=== PATIENT | female | born 1975 | race Caucasian/White ===

== ENCOUNTER 2017-08-03 01:58 | Inpatient (IN) | payer OTHER ==
[2017-08-03] VITALS (12 sets, daily range): BP systolic 97–139; BP diastolic 61–94
[~2017-08-03] VITALS: Ht 172.7 cm; Wt 77.0 kg
[~2017-08-03 01:58] MED LIST: CIPRO500 MG PO; EYE DROP TEARS15 ML OP; LACTULOSE10 GM/153 PO; MEDROL4 MG PO; NEURONTIN 300300 M1 PO; NOHOMEMEDICATIONS; PEPCID20 MG PO; PERCOCET 5-3251 EACH PO; UNICOMPLEX M TA1 TA1 PO; VITAMIN B-1100 M1 PO; XIFAXAN550 MG PO
[2017-08-03 02:41] LABS: ABSOLUTE LYMPHOCYTES 0.5 thou/uL (0.8-5.3); ABSOLUTE MONOCYTES 0.4 thou/uL (0.0-1.2); ABSOLUTE NEUTROPHILS 2.2 thou/uL (1.6-8.1); BASOPHILS 0.7 %; EOSINOPHILS 1.2 %; HEMATOCRIT 33.7 % (37.0-47.0); HEMOGLOBIN 11.4 gm/dL (12.0-15.0); LYMPHOCYTES 15.3 %; MCH 35.2 pg (26.0-34.0); MCHC 33.9 g/dL (28.0-37.0); MCV 103.9 fL (80.0-100.0); MONOCYTES 12.8 %; MPV 8.7 fl. (7.2-11.1); NUCLEATED RBCS 0 /100WBC; RBC 3.25 mil/uL (4.20-5.00); RDW-CV 16.7 % (10.5-14.5); WBC 3.1 thou/uL (4.0-11.0)
[2017-08-03 02:49] LABS: URINE CLARITY CLEAR; URINE COLOR AMBER; URINE SPECIFIC GRAVITY 1.025 (1.005-1.030)
[2017-08-03 02:50] LABS: URINE BILIRUBIN 1+ (Negative); URINE BLOOD 2+ (Negative); URINE GLUCOSE-RANDOM NEGATIVE (Negative); URINE KETONES 1+ (Negative); URINE LEUKOCYTES-REFLEX NEGATIVE (Negative); URINE NITRITE-REFLEX NEGATIVE (Negative); URINE PROTEIN 2+ (Negative); URINE UROBILINOGEN 0.2 E.U./dl (0.2-1.0)
[2017-08-03 02:52] LABS: PLATELET COUNT* 38 thou/uL (150-400)
[2017-08-03 02:56] LABS: AMP/METHAMP Negative (Negative); BARBITURATES Negative (Negative); BENZODIAZEPINES Negative (Negative); COCAINE Negative (Negative); METHADONE Negative (Negative); OPIATES Negative (Negative); PCP Negative (Negative); THC Negative (Negative)
[2017-08-03 03:01] LABS: CASTS None Seen /LPF (None Seen); CRYSTALS None Seen /LPF (None Seen); ICTOTEST (BILI CONFIRMATORY) Positive (Negative); MUCUS 0-3 Light strn/LPF (None Seen); SQUAMOUS 4-10 Moderate /LPF (0-3); TRANSITIONAL EPITHEL CELL 0-3 Few /LPF (None Seen); URINE RBC 3-10 Few /HPF (0-2); URINE WBC-REFLEX None Seen /HPF (0-5)
[2017-08-03 03:22] LABS: ALBUMIN 4.2 g/dL (3.4-5.0); CALCIUM 9.6 mg/dL (8.5-10.1); CREATININE 0.8 mg/dL (0.6-1.3); MAGNESIUM 1.3 mg/dL (1.8-2.4); PHOSPHORUS* 2.6 mg/dL (2.5-4.9); POTASSIUM 3.2 mmol/L (3.5-5.1); TOTAL BILIRUBIN 5.5 mg/dL (<0.1-1.0); TOTAL PROTEIN 8.2 g/dL (6.4-8.2)
--- NOTE | 2017-08-03 04:05 | NUR ---
0315 PT HAVING ANOTHER SEIZURE AT THIS TIME.
--- NOTE | 2017-08-03 04:06 | NUR ---
0340 MEDS GIVEN AT THIS TIME, PT FIGHTING STAFF AND PULLED OUT HER IV.
[2017-08-03] MEDS ORDERED: NEURONTIN 300M300 M2 PO (05:49)
--- NOTE | 2017-08-03 06:28 | NUR ---
0542 PT ARRIVED TO UNIT VIA STRETCHER IN STABLE CONDITION. ORIENTED PT TO UNIT. SETTLED IN BED. PLACED ON TELE. ADMITTED TO UNIT.
--- NOTE | 2017-08-03 07:43 | NUR ---
PATIENT CURRENTLY SLEEPING. WAKEN FOR ASSESSMENT. NO PAIN, NAUSEA OR SHORTNESS OF AIR. DENIES HEADACHE OR HALLUCINATIONS. ASSESSMENT CHARTED. GOALS ARE SAFTEY, PAIN CONTROL, SEIZURE PRECAUTIONS AND CIWA Q1H. BED IN LOWEST POSITION, CALL LIGHT IN REACH, STAFF SONOGRAPHER IN PLACE, WILL CONTINUE TO MONITOR.
[2017-08-03 07:57] LABS: INR 1.3; PROTIME 12.9 Seconds (9.20-11.50)
--- NOTE | 2017-08-03 10:19 | EKG ---
[place] [address] ELECTROCARDIOGRAM REPORT Name: DAQUAN CLIFFORD Room: [address] IN [facility]#: [id number] Admission: 08/03/17 Attend Phys: Claudia Meng Discharge: Date of : 71 Report #: [id number] THIS REPORT FOR: //name// [facility] ED Test Date: 2017-08-03 Test Time: 02:29:30 Pat Name: DAQUAN CLIFFORD Department: Room: Gender: F Director Of Digital Technology: : 1975 Requested By: Page Gutierrez Order Number: [id number] MD: Cl Erickson Measurements Intervals Hugo Rate: 95 P: 60 WI: 160 QRS: 33 QRSD: 79 T: 28 QT: 368 QTc: 463 Interpretive Statements Sinus rhythm No previous ECG available for comparison Electronically Signed On 08-03-2017 10:19:34 CDT by Cl Eirckson [email or web address] <ELECTRONICALLY SIGNED> By: Cl Erickson MD, [facility] 08/03/17 1019 [id number] Cl Erickson MD, FACC /EPI
--- NOTE | 2017-08-03 12:33 | NUR ---
PATIENT IS OK TO GO TO MRI WITHOUT NURSE PER DR HELM.
--- NOTE | 2017-08-03 17:42 | NUR ---
PATIENT HAS PROGRESSED WELL TOWARDS GOALS. NO NAUSEA, SHORTNESS OF AIR. PAIN PRESENT IN THROAT, ONETIME DOSE OF IBUPROFEN ORDERED PER CONCERT MANAGER DR ABEBE. FAMILY HAS VISITED TODAY. CIWA HAS REMAINED 2 ALL DAY. NO SEIZURE ACTIVITY TODAY, PRECAUTIONS REMAIN IN PLACE, FALL PRECAUTIONS REMAIN IN PLACE. MRI AND EEG DONE TODAY. BED IN LOWEST POSITION, CALL LIGHT IN REACH, ASSET PROTECTION GREETER IN PLACE. WILL CONTINUE TO MONITOR.
[2017-08-03 17:50] LABS: MAGNESIUM 2.3 mg/dL (1.8-2.4); POTASSIUM 4.1 mmol/L (3.5-5.1)
[2017-08-04] VITALS (8 sets, daily range): BP systolic 87–126; BP diastolic 57–89
[2017-08-04 03:10] LABS: HEMATOCRIT 31.5 % (37.0-47.0); HEMOGLOBIN 10.7 gm/dL (12.0-15.0); MCH 36.1 pg (26.0-34.0); MCV 106.1 fL (80.0-100.0); MPV 9.2 fl. (7.2-11.1); RBC 2.97 mil/uL (4.20-5.00); RDW-CV 17.3 % (10.5-14.5); WBC 3.6 thou/uL (4.0-11.0)
[2017-08-04 03:33] LABS: ALBUMIN 3.4 g/dL (3.4-5.0); CALCIUM 8.6 mg/dL (8.5-10.1); CREATININE 0.6 mg/dL (0.6-1.3); PHOSPHORUS* 2.4 mg/dL (2.5-4.9); POTASSIUM 4.3 mmol/L (3.5-5.1); TOTAL BILIRUBIN 6.5 mg/dL (<0.1-1.0); TOTAL PROTEIN 7.1 g/dL (6.4-8.2)
--- NOTE | 2017-08-04 05:15 | NUR ---
PATIENT PROGRESSING TOWARDS DISCHARGE GOALS. NO ACUTE CHANGES OVER NIGHT. CIWA SCORES 2. D/T MILDLY ANXIOUS. SHE WANTS TO BE ABLE TO GO HOME SOON POSSIBLE. PLT COUNT CONTINUES TRENDING DOWN NOW AT 35 DR. MADE AWARE. PT EXPLAINED SHE HAS TROUBLE SLEEPING AT HOME AND WANTS TO KNOW IF THE DR CAN SEND HER HOME WITH SOME SORT OF SLEEP AID MEDICAITON. PT DENIES PAIN, N&V, NO SEIZURE ACTIVITY. WILL CONTINUE TO MONITOR SEIZURE PRECAUTONS IN PLACE. CALL LIGHT WITHIN REACH. BED TO LOWEST POSITION.
--- NOTE | 2017-08-04 08:15 | NUR ---
6768 ASSUMED CARE OF PATIENT. PLEASE SEE DOCUMENTED ASSESSMENT AND CIWA SCORING. DISCUSSED GOALS AND PLAN OF CARE WITH PATIENT. SHE IS AGREEABLE. SD'S REPLACED
[2017-08-04 09:09] LABS: HEPATITIS B SURFACE AG Negative (Negative)
--- NOTE | 2017-08-04 09:51 | NUR ---
PATIENT SPOKE AT LENGTH WITH DR HELM. PATIENT IS NOW TELEMETRY STATUS
--- NOTE | 2017-08-04 10:46 | NUR ---
1000 FOOT PUMPS PLACED PER ORDER DR HELM
--- NOTE | 2017-08-04 11:50 | NUR ---
SPOUSE TO VISIT PATIENT
--- NOTE | 2017-08-04 17:24 | NUR ---
PATIENT PROGRESSING TOWARDS GOALS. NOW TELE STATUS. CIWA 2-3. PLATELETS LOW AND BANANA BAG INFUSING. ON ROOM AIR. UP TO BSC. FOOR PUMPS WHEN UP. SPOUSE HAS VISITED. PATIENT DOES NOT WANT SPOUSE TO KNOW OF HER ETOH ABUSE. SHE SAYS SHE WILL TELL HIMN WHEN SHE IS READY
--- NOTE | 2017-08-04 17:59 | NUR ---
PATIENT TO MOVE TO ROOM 214. PATIENT AND FAMILY INFORMED OF NEW ROOM
--- NOTE | 2017-08-04 18:39 | NUR ---
TRANSFERRED PER WHEELCHAIR WITH ALL RECORDS AND BELONGINGS. REPORT TO LALO JAIMES
--- NOTE | 2017-08-04 18:40 | NUR ---
PT ORIENTED TO ROOM AND UNIT. BED LOW AND LOCKED, SIDE RAILS UPX 3, CALL LIGHT IN REACH. TELE REVEALS SR IN THE S.
[2017-08-05 00:31] VITALS: BP 118/86
[2017-08-05 03:49] VITALS: BP 133/85
[2017-08-05 04:57] LABS: HEMATOCRIT 31.3 % (37.0-47.0); HEMOGLOBIN 10.7 gm/dL (12.0-15.0); MCH 35.7 pg (26.0-34.0); MCV 104.9 fL (80.0-100.0); MPV 9.2 fl. (7.2-11.1); RBC 2.99 mil/uL (4.20-5.00); RDW-CV 17.8 % (10.5-14.5); WBC 3.8 thou/uL (4.0-11.0)
[2017-08-05 05:04] LABS: ALBUMIN 3.3 g/dL (3.4-5.0); CALCIUM 8.7 mg/dL (8.5-10.1); CREATININE 0.6 mg/dL (0.6-1.3); MAGNESIUM 1.5 mg/dL (1.8-2.4); PHOSPHORUS* 3.5 mg/dL (2.5-4.9); POTASSIUM 3.7 mmol/L (3.5-5.1); TOTAL BILIRUBIN 6.8 mg/dL (<0.1-1.0); TOTAL PROTEIN 6.9 g/dL (6.4-8.2)
--- NOTE | 2017-08-05 05:30 | NUR ---
PT CARE ASSUMED AFTER REPORT. ASSESSMENT COMPLETE. SR ON MONITOR. PT REMOVED HER IV. STATES THAT SHE DOES NOT NEED ONE THAT SHE IS GOING HOME TODAY. CIWA SCORE OF 2. UP AD ROSSANA WITH STEADY GAIT. CALL LIGHT IN REACH. BED IN LOWEST POSITION. PROGRESSING TOWARDS GOALS. DENIES PAIN.
[2017-08-05 08:18] VITALS: BP 128/84
[2017-08-05 11:40] VITALS: BP 128/84
[2017-08-05] MEDS ORDERED: BUSPIRONE HCL10 MG PO (11:45)
[2017-08-05] MEDS ORDERED: MELATONIN5 M1 PO (11:46)
[2017-08-05] MEDS ORDERED: LACTULOSE10 GM/152 PO (11:47)
[2017-08-05 12:04] VITALS: BP 129/90
[2017-08-05] MEDS ORDERED: PRENATAL PO (12:21)
--- NOTE | 2017-08-05 12:36 | NUR ---
ASSUMED CARE OF PT AT 0715. PT A&O X4 CALM AND COOPERATIVE. CIWA SCORES <5, R/T ANXIETY AND FEELABLE TREMORS. PT DISCHARGED HOME TO SELF CARE. PT VERBALIZED UNDERSTANDING OF DC INSTRUCTIONS THAT INCLUDED MEDICATION TEACHING AND F/U CARE. STRUCTURAL IRONWORKER REMOVED PT HAD NO IV ACCESS. ALL PERSONAL BELONGINGS AND PRESCRIPTIONS TAKEN AT TIME OF DISCHARGED.
--- NOTE | 2017-08-11 13:48 | CON ---
[facility] [address] [place] [address] CONSULTATION Name: DAQUAN CLIFFORD Room: [address] IN M.R.#: [id number] Admission: 08/03/17 Attend Phys: Claudia Meng Discharge: 08/05/17 Date of : 71 Report #: [id number] THIS REPORT FOR: //name// CC: Nia Donohue DATE OF SERVICE: 08/03/2017 HISTORY OF PRESENT ILLNESS: A 43-year-old female patient who was evaluated by me for seizure. The patient does not remember anything about the seizures. I reviewed notes in the computer, but looks like this patient had a pretty convincing grand mal seizure with tongue biting and postictal period. The patient drinks alcohol on a regular basis. She is pretty evasive how much alcohol she drinks. What I could get is that she drink alcohol on a regular basis, but about 3-5 days ago, she was drinking about 1 bottle of wine and then she wanted to stop it and she stopped about 3 days ago and then she had this grand mal seizure. I suspect she might be drinking significant amount of alcohol prior to that because she had an admission in 06/2016 with alcohol related problems. She is very scared and she thought the seizure was pretty scary. REVIEW OF SYSTEMS: Indicate that she never had seizure before. She did have GI problem for which she was admitted in 2017. She is not a diabetic. She was on gabapentin for some neuropathy as I understand. Presently, she is on thiamine as well as multivitamin. She still has periods, but is not on any contraceptions, but her urine test is negative. I carried out rest of the 14-point review of system and that was mostly unremarkable. PAST MEDICAL HISTORY: Negative for seizure. FAMILY HISTORY: Negative for congenital epilepsies. SOCIAL HISTORY: She drinks significant amount of alcohol, but does not look like she smokes or use any other drugs. PHYSICAL EXAMINATION: The patient's examinations indicate she is alert. She is responsive. She can tell me what month and what day it is. She is still not very with cognition. Cranial nerve examination 2-12 is unremarkable. Her speech is unremarkable. Strength, sensation, reflexes and tone is symmetrical. I could not look at the patient's fundus. There is no meningeal sign. There is no carotid bruit. She is reasonably developed individual who does not have any dysmorphic features of eyes, ears and face. Her vision and hearing looks adequate. Cardiac examination is unremarkable. No respiratory difficulty or rhonchi was noticed. Pulses appeared to be palpable. Blood pressure is 116/83, respiration is 13, [place] [address] CONSULTATION Name: CLIFFORDDAQUAN R Room: [address] M.R.#: [id number] Admission: 08/03/17 Attend Phys: Claudia Meng Discharge: 08/05/17 Date of : 71 Report #: [id number] pulse is 91, and temperature is normal at 98.8. LABORATORY DATA: Indicate platelet count of only 38 and MCV of . She also has a significant liver dysfunction as well as low sodium. She also has low magnesium. IMPRESSION: 1. Alcohol withdrawal seizure. 2. Multiple blood abnormalities, probably attributed to alcohol. RECOMMENDATION: I discussed with the patient her options and I suggested that we do an MRI of the brain to complete the workup. This is because her platelet counts are low and we will like to make sure there is no microscopic bleeding, although that appears unlikely. I discussed with her that she needs to stop drinking alcohol altogether. Her electrolyte abnormalities, especially magnesium and sodium need to be corrected. I discussed with her that she needs to take seizure precautions and she cannot drive for 6 months. I discussed those precautions with her. She understood all those and she wants to follow this plan. We will get an MRI and an EEG done. I did discuss with her the option of going on anticonvulsant and she wants to stay without anticonvulsant which is reasonable. It might be mentioned she is on gabapentin for paresthesias and pain and does have some antihypertensive effect. Thank you very much for this referral and if you have any question, please feel free to contact me. <ELECTRONICALLY SIGNED> By: Binh Mckeon MD 08/11/17 1348 1204 [id number] Mckeon MD /nt
== END 2017-08-05 12:30 | disposition home or self-care (01) | DRG 101 ==
LOC: M.ERS 01:58 → M.ICU 04:25 → M.TBA-ER 04:25 → M.ICU 05:21 → M.2W 08-04 18:24
PROVIDERS: Internal Medicine; Personal Emergency Response Attendant; ADMIT Internal Medicine
DX: G40.89 Other seizures (principal); D61.818 Other pancytopenia; F10.230 Alcohol dependence with withdrawal, uncomplicated; J45.909 Unspecified asthma, uncomplicated; R79.89 Other specified abnormal findings of blood chemistry; Z98.42 Cataract extraction status, left eye; Z98.41 Cataract extraction status, right eye; Z79.899 Other long term (current) drug therapy

== ENCOUNTER → 2017-10-15 | Outpatient (CLI) | payer OTHER ==
[~2017-10-15] MED LIST changes: +BUSPIRONE HCL10 MG PO; +LACTULOSE10 GM/152 PO; +MELATONIN5 M1 PO; +NEURONTIN 300M300 M2 PO; +PRENATAL PO
[2017-10-15 12:08] LABS: ABSOLUTE EOSINOPHILS 0.1 thou/uL (0.0-0.7); ABSOLUTE LYMPHOCYTES 1.4 thou/uL (0.8-5.3); ABSOLUTE MONOCYTES 0.3 thou/uL (0.0-1.2); ABSOLUTE NEUTROPHILS 4.2 thou/uL (1.6-8.1); BASOPHILS 0.7 %; EOSINOPHILS 2.4 %; HEMATOCRIT 35.2 % (37.0-47.0); HEMOGLOBIN 11.9 gm/dL (12.0-15.0); LYMPHOCYTES 23.5 %; MCH 33.6 pg (26.0-34.0); MCHC 33.8 g/dL (28.0-37.0); MCV 99.4 fL (80.0-100.0); MONOCYTES 5.3 %; MPV 7.9 fl. (7.2-11.1); NUCLEATED RBCS 0 /100WBC; PLATELET COUNT* 120 thou/uL (150-400); POLYS 68.1 %; RBC 3.54 mil/uL (4.20-5.00); WBC 6.1 thou/uL (4.0-11.0)
[2017-10-15 12:15] LABS: INR 1.2; PROTIME 11.5 Seconds (9.20-11.50)
[2017-10-15 12:21] LABS: ALBUMIN 4.2 g/dL (3.4-5.0); CALCIUM 9.6 mg/dL (8.5-10.1); CREATININE 0.7 mg/dL (0.6-1.3); POTASSIUM 3.5 mmol/L (3.5-5.1); TOTAL BILIRUBIN 0.9 mg/dL (<0.1-1.0); TOTAL PROTEIN 8.5 g/dL (6.4-8.2)
== END ==
LOC: M.LAB 11:43
PROVIDERS: Nurse Practitioner Adult Health
DX: K70.30 Alcoholic cirrhosis of liver without ascites (principal); J45.909 Unspecified asthma, uncomplicated; F10.99 Alcohol use, unspecified with unspecified alcohol-induced disorder

== ENCOUNTER 2020-12-24 19:41 | Inpatient (IN) | payer OTHER ==
[~2020-12-24] VITALS: Ht 167.6 cm; Wt 78.5 kg
[2020-12-24 19:47] VITALS: BP 147/108
[2020-12-24] MEDS ORDERED: VITAMIN B-121000 MC2 SUBLING (19:53)
[2020-12-24 20:28] LABS: URINE BLOOD 3+ (Negative); URINE CLARITY CLOUDY; URINE COLOR YELLOW; URINE GLUCOSE-RANDOM NEGATIVE (Negative); URINE KETONES TRACE (Negative); URINE LEUKOCYTES-REFLEX NEGATIVE (Negative); URINE NITRITE-REFLEX NEGATIVE (Negative); URINE PROTEIN 2+ (Negative); URINE SPECIFIC GRAVITY 1.025 (1.005-1.030)
[2020-12-24 20:36] LABS: ICTOTEST (BILI CONFIRMATORY) Negative (Negative); URINE BILIRUBIN 1+ (Negative)
[2020-12-24 20:38] LABS: MUCUS None Seen strn/LPF (None Seen); SQUAMOUS >10 Many /LPF (0-3); URINE RBC >20 Many /HPF (0-2)
[2020-12-24 20:39] LABS: BACTERIA-REFLEX 1-9 Few /HPF (None Seen); CASTS None Seen /LPF (None Seen); CRYSTALS None Seen /LPF (None Seen)
[2020-12-24 20:40] LABS: URINE WBC-REFLEX None Seen /HPF (0-5)
[2020-12-24 20:46] LABS: AMP/METHAMP Negative (Negative); BARBITURATES Negative (Negative); BENZODIAZEPINES Negative (Negative); COCAINE Negative (Negative); METHADONE Negative (Negative); OPIATES POSITIVE (Negative); PCP Negative (Negative); THC Negative (Negative)
[2020-12-24 21:08] LABS: ABSOLUTE LYMPHOCYTES 0.6 thou/uL (0.8-5.3); ABSOLUTE MONOCYTES 0.2 thou/uL (0.0-1.2); ABSOLUTE NEUTROPHILS 1.5 thou/uL (1.6-8.1); HEMATOCRIT 30.2 % (37.0-47.0); HEMOGLOBIN 10.4 gm/dL (12.0-15.0); LYMPHOCYTES 25.9 %; MCH 34.8 pg (26.0-34.0); MCHC 34.5 g/dL (28.0-37.0); MCV 100.8 fL (80.0-100.0); MONOCYTES 8.9 %; MPV 7.2 fl. (7.2-11.1); NUCLEATED RBCS 0 /100WBC; POLYS 62.2 %; WBC 2.4 thou/uL (4.0-11.0)
[2020-12-24 21:18] LABS: PLATELET COUNT* 30 thou/uL (150-400)
[2020-12-24 21:28] LABS: ALBUMIN 4.5 g/dL (3.4-5.0); CALCIUM 8.6 mg/dL (8.5-10.1); TOTAL BILIRUBIN 1.2 mg/dL (<0.1-1.0)
[2020-12-24 21:34] LABS: CREATININE 0.6 mg/dL (0.6-1.3)
[2020-12-25] VITALS (20 sets, daily range): BP systolic 139–154; BP diastolic 88–113
[2020-12-25 01:59] LABS: MAGNESIUM 2.1 mg/dL (1.8-2.4); POTASSIUM 3.4 mmol/L (3.5-5.1)
[2020-12-25] MEDS ORDERED: ZOLOFT 50 MG TA50 MG (10:55)
--- NOTE | 2020-12-25 12:51 | NUR ---
CM COMPLETED ASSESSMENT WITH PT WHO PRESENTS WITH TREMORS. PT INDICATED SHE LIVES ALONE IN AN APT, HAS 50/50 CUSTODY OF KIDS, SHARES CUSTODY W/EX. PT DRIVES A VEHICLE, UNEMPLOYEED & INDEPENDENT WITH ADLS.PT DENIES USING DMES, OR HX WITH SNF OR HH. PT INDICATED SHE HAS BEEN DRINKING A "BOTTLE" OF VODKA FOR OVER 20 YRS. PT HAD NOT HAD A DRINK OF VODKA IN ~2 DAYS B/C "I'VE BEEN FEELING BAD." PT INDICATED SHE IS INTERESTED IN DETOX/[place] AT [place]. CM EDU PT ON [facility] AND AGREEABLE TO MEET WITH THEM ONCE MEDICALLT STABLED. PT HAS HX AT [facility] IN [facility]. PT INDICATED HER LONGEST PERIOD OF SOBRIETYIS 2YRS, 2019 THRU 2019. CM TO CONT TO FOLLOW.
--- NOTE | 2020-12-25 18:27 | NUR ---
Pt has severe intension tremors, which have improved some from this morning. Receiving schedule lorazepam q4h as well as PRN (see MAR). VSS, DBP 90s-100s. Pt reports some anxiety. She is very weak and tremulous with transfers to [facility]; up X1 moderate assist. Reports she drinks a bottle of vodka daily at home. States she lives alone. Voiding without difficulty, and has eaten at least half of each meal today. Will continue to monitor.
[2020-12-26] VITALS (19 sets, daily range): BP systolic 112–150; BP diastolic 73–104
--- NOTE | 2020-12-26 07:54 | NUR ---
PT SLEPT MOST OF SHIFT. BECAME TACHYCARDIC ON MONITOR WHEN COMING UP ON HER Q 4HR OF ATIVAN BEING DUE. CIWA SCORE IN THE MID TEENS. PT HAD SEVERE TREMORS. REQUESTED MARCIAL. DARK STEPHANIE URINE NOTED. PT GIVEN FLUIDS. AT ONE POINT DURING THE NIGHT PT WAS TALKING TO A "CONNOR" BUT DENIED HEARING OR SEEING ANYONE/ANYTHING THAT WASNT THERE. PT ALSO REPORTED HISTORY OF SEIZURES WITH DETOX. SEIZURE PADS PLACED ON SIDE RAILS. REPORT GIVEN TO DAY RN.
[2020-12-26 10:10] LABS: ABSOLUTE LYMPHOCYTES 0.4 thou/uL (0.8-5.3); ABSOLUTE MONOCYTES 0.3 thou/uL (0.0-1.2); BASOPHILS 1.2 %; EOSINOPHILS 0.7 %; HEMATOCRIT 32.4 % (37.0-47.0); LYMPHOCYTES 15.4 %; MONOCYTES 11.1 %; MPV 7.4 fl. (7.2-11.1); NUCLEATED RBCS 0 /100WBC; POLYS 71.6 %; RBC 3.15 mil/uL (4.20-5.00); WBC 2.8 thou/uL (4.0-11.0)
[2020-12-26 10:13] LABS: PLATELET COUNT* 25 thou/uL (150-400)
[2020-12-26 10:30] LABS: ALBUMIN 4.6 g/dL (3.4-5.0); CALCIUM 8.3 mg/dL (8.5-10.1); CREATININE 0.5 mg/dL (0.6-1.3); TOTAL BILIRUBIN 2.1 mg/dL (<0.1-1.0); TOTAL PROTEIN 8.2 g/dL (6.4-8.2)
[2020-12-26 11:55] LABS: CALCIUM 8.1 mg/dL (8.5-10.1); CREATININE 0.6 mg/dL (0.6-1.3); POTASSIUM 3.4 mmol/L (3.5-5.1)
--- NOTE | 2020-12-26 16:43 | NUR ---
ETOH protocal, monitor withdrawal sx. Med Assist to screen
[2020-12-27] VITALS (21 sets, daily range): BP systolic 96–153; BP diastolic 62–107
[2020-12-27 03:23] LABS: HEMATOCRIT 29.8 % (37.0-47.0); HEMOGLOBIN 10.1 gm/dL (12.0-15.0); MCH 35.5 pg (26.0-34.0); MCV 104.5 fL (80.0-100.0); MPV 8.3 fl. (7.2-11.1); RBC 2.86 mil/uL (4.20-5.00); RDW-CV 18.2 % (10.5-14.5); WBC 2.4 thou/uL (4.0-11.0)
[2020-12-27 03:48] LABS: ALBUMIN 4.2 g/dL (3.4-5.0); CALCIUM 8.2 mg/dL (8.5-10.1); CREATININE 0.7 mg/dL (0.6-1.3); MAGNESIUM 1.8 mg/dL (1.8-2.4); POTASSIUM 3.9 mmol/L (3.5-5.1); TOTAL BILIRUBIN 1.9 mg/dL (<0.1-1.0); TOTAL PROTEIN 7.7 g/dL (6.4-8.2)
--- NOTE | 2020-12-27 05:57 | NUR ---
PT BECAME VERY AGITATED AND RESTLESS, CONSTANTLY WANTING TO GET UP, NOT DIRECTABLE. DR. REYNOSO WAS NOTIFIED AND RECEIVED AN ORDER FOR PREXEDEX. REMAINS FREE FROM INJURY. CONTINUE IVF. ATIVAN WAS ALSO GIVEN ALMOST EVERY HOUR.
--- NOTE | 2020-12-27 16:54 | NUR ---
ICU Rounds: Patient continues to remain on precedex. CWAS continues to go up per nursing. Continued lactulose. Patient continues to need ICU level of care. CM to continue to follow
[2020-12-28] VITALS (10 sets, daily range): BP systolic 107–162; BP diastolic 67–105
--- NOTE | 2020-12-28 00:38 | NUR ---
NO CHANGES IN ASSESSMENT FROM 1999
[2020-12-28 03:45] LABS: HEMATOCRIT 28.9 % (37.0-47.0); HEMOGLOBIN 9.7 gm/dL (12.0-15.0); MCH 35.7 pg (26.0-34.0); MCHC 33.7 g/dL (28.0-37.0); RBC 2.72 mil/uL (4.20-5.00); RDW-CV 19.1 % (10.5-14.5); WBC 2.1 thou/uL (4.0-11.0)
[2020-12-28 04:01] LABS: ALBUMIN 3.9 g/dL (3.4-5.0); CALCIUM 7.6 mg/dL (8.5-10.1); CREATININE 0.5 mg/dL (0.6-1.3); MAGNESIUM 1.7 mg/dL (1.8-2.4); POTASSIUM 3.5 mmol/L (3.5-5.1); TOTAL BILIRUBIN 1.3 mg/dL (<0.1-1.0); TOTAL PROTEIN 7.2 g/dL (6.4-8.2)
--- NOTE | 2020-12-28 10:24 | NUR ---
ICU Rounds: Met with patient at bedside. Patient is calm but a little shaky and anxious to go home. Alchol/drug rx provided. Patient remains on precedex gtt with the goal to titrate down/off. Once gtt off patient could downgrade to tele if agreedru. Asked patient if she wanted CM to update family on plan of care and she stated not to call her ex- Jw. The only persons that she wants contacted are her neighbor/boyfriend Giacomo and her mother Felipe. Both contacts listed on file. Patient could dc over the weekend if stable. CM to remain available for dc needs but none anticipated at this time. CM to continue to follow
[2020-12-29] VITALS: BP 132/87
[2020-12-29 04:32] LABS: HEMATOCRIT 28.5 % (37.0-47.0); HEMOGLOBIN 9.7 gm/dL (12.0-15.0); MCH 35.4 pg (26.0-34.0); MPV 8.3 fl. (7.2-11.1); RBC 2.74 mil/uL (4.20-5.00); RDW-CV 19.1 % (10.5-14.5); WBC 2.6 thou/uL (4.0-11.0)
[2020-12-29 04:54] LABS: ALBUMIN 3.9 g/dL (3.4-5.0); CALCIUM 8.2 mg/dL (8.5-10.1); CREATININE 0.5 mg/dL (0.6-1.3); TOTAL PROTEIN 7.4 g/dL (6.4-8.2)
[2020-12-29 04:59] LABS: POTASSIUM 2.9 mmol/L (3.5-5.1)
--- NOTE | 2020-12-29 06:00 | NUR ---
RECEIVED REPORT FROM ICU, PT TO ROOM PER W/C. PT ALERT, ORIENTED X4. TELEMETRY APPLIED SHOWING SR. DISCUSSED LOW POTASSIUM AND ANOTHER KCL AT 0700. PT ANXIOUS AND WANTING TO GO HOME TODAY. EXPLAINED WOULD NEED TO TALK WITH
[2020-12-29 08:00] VITALS: BP 145/104
[2020-12-29] MEDS ORDERED: ATIVAN1 M1 PO (10:20)
[2020-12-29] MEDS ORDERED: VITAMIN B-1100 M1 PO (10:23)
[2020-12-29] MEDS ORDERED: PNV 29-1 TABLE1 EACH PO (10:24)
[2020-12-29 10:44] VITALS: BP 145/104
[2020-12-29 10:51] VITALS: BP 145/104
[2020-12-29 12:00] VITALS: BP 134/78
--- NOTE | 2020-12-29 13:23 | NUR ---
ASSUMED PT CARE AT 0730, PT AOX4, FLAT AFFECT, C/O ANXIETY, GAVE ANXIETY MEDS PER MAY. PT WORKED W/ DR AND DC ORDERS RECEIVED. BOTH IVS AND BOTTOM HOOP DRIVER REMOVED. PT DC'D BY W/ NURSING STAFF AND ALL PAPERWORK AND PERSONAL BELONGINGS TO MOM'S VEHICLE AT APPROX 1327
== END 2020-12-29 13:27 | disposition home or self-care (01) | DRG 433 ==
LOC: M.ERS 19:41 → M.TBA-ER 21:51 → M.ICU 12-25 09:10 → M.2W 12-29 05:56
PROVIDERS: Emergency Medicine; Nurse Practitioner Adult Health; Nurse Practitioner Family; ADMIT Internal Medicine; ATTEND Internal Medicine
DX: K70.30 Alcoholic cirrhosis of liver without ascites (principal); F10.239 Alcohol dependence with withdrawal, unspecified; Z20.822 Contact with and (suspected) exposure to COVID-19; D69.6 Thrombocytopenia, unspecified